=== PATIENT | female | born 1930 | race Caucasian/White ===

== ENCOUNTER 2017-11-25 04:13 | Emergency (ER) | payer OTHER ==
--- NOTE | 2017-11-25 04:37 | ED MVC/FALL/TRAUMA COMPLAINT ---
History of Present Illness General Chief Complaint: Fall Stated Complaint: "FALL" Source: patient, family Exam Limitations: patient's age, clinical condition Vital Signs & Intake/Output Vital Signs & Intake/Output Vital Signs Date Time Temp Pulse Resp B/P B/P Pulse O2 O2 Flow FiO2 Mean Ox Delivery Rate 11/25 0536 172/100 11/25 0459 Room Air 11/25 0426 97.4 108 18 163/113 99 Room Air Allergies Coded Allergies: adhesive tape (UNKNOWN 07/17/15) Triage Note: PT TO TRIAGE FROM HOME S/P TRIP AND FALL WHEN GETTING UP TO BATHROOM THIS MORNING. +HEADSTRIKE, BRUISING AND EDEMA NOTED TO EYELIDS, NOSE, NOSE BLEEDING. PT ON WARFARIN. A/O. EVAL'D UPON ARRIVAL TO ROOM BY MD EDDY. Triage Nurses Notes Reviewed? yes Onset: Gradual Duration: minute(s): Timing: recent history Severity: moderate Injuries/Fall Location: head Method of Injury: fall Loss of Consciousness: no loss of consciousness Modifying Factors: Improves With: rest. Associated Symptoms: facial swelling and ecchymosis HPI: 87 yo woman on coumadin presents after a fall. Her daughter notes that she walks with a walker, arose to go to the bathroom and tripped. She landed directly on her face, did not lose consciousness. She notes her face is very swollen with an abrasion on the bridge of her nose. She notes no other injury. Past History Travel History Traveled to [place] past 21 day No Medical History Any Pertinent Medical History? see below for history Neurological: NONE EENT: NONE Cardiovascular: hypertension, "IRREGULAR HEART BEAT" Respiratory: NONE Gastrointestinal: NONE Hepatic: NONE Renal: NONE Musculoskeletal: NONE Psychiatric: NONE Endocrine: diabetes Blood Disorders: NONE Cancer(s): NONE FILER FINISH/Reproductive: NONE Surgical History Surgical History: none Psychosocial History Services at Home None What is your primary language Sammarinese Tobacco Use: Never used Family History Hx Contributory? No Review of Systems Review of Systems Constitutional: Reports: no symptoms. Eyes: Reports: no symptoms. Ears, Nose, Throat, Mouth: Reports: no symptoms. Respiratory: Reports: no symptoms. Cardiovascular: Reports: no symptoms. Gastrointestinal/Abdominal: Reports: no symptoms. Genitourinary: Reports: no symptoms. Musculoskeletal: Reports: no symptoms. Skin: Reports: no symptoms. Neurological/Psychological: Reports: no symptoms. All Other Systems: Reviewed and Negative Physical Exam Physical Exam General Appearance: well developed/nourished, moderate distress Head: raccoon eyes bilaterally Eyes: Bilateral: other (raccoon eyes B,eyes swollen). Ears, Nose, Throat, Mouth: 1x2cm abrasion on bridge of nose with tiny arterial bleeding. Neck: normal inspection, supple, full range of motion, normal alignment Respiratory: normal breath sounds, chest non-tender, no respiratory distress, quiet respiration, lungs clear Cardiovascular: irregularly irregular Gastrointestinal: normal bowel sounds, soft, non-tender, no organomegaly Back: normal inspection, normal range of motion Extremities: normal range of motion Neurologic/Psych: no motor/sensory deficits, awake, alert Skin: intact, normal color Core Measures ACS in differential dx? No CVA/TIA Diagnosis No Sepsis Present: No Sepsis Focused Exam Completed? No Progress Differential Diagnosis: skull fx, maxillo-facial fx, ICH, vs other trauma Plan of Care: Orders Procedure Date/time Status BLOOD PRODUCT PICKUP 11/25 0555 Active FRESH FROZEN PLASMA 11/25 0551 Active TYPE & SCREEN (NOT X-MATCH) 11/25 0544 Active Add-on Test (ER Only) 11/25 0530 Active Add-on Test (ER Only) 11/25 0501 Active PARTIAL THROMBOPLASTIN TIME 11/25 0444 Complete PROTHROMBIN TIME 11/25 0444 Complete DIGOXIN 11/25 0444 Complete TROPONIN LEVEL 11/25 0438 Complete LIPASE 11/25 0438 Complete HEPATIC FUNCTION PANEL 11/258 Complete CBC WITHOUT DIFFERENTIAL 11/25 437 Complete BASIC METABOLIC PANEL 11/258 Complete AMYLASE 11/25 0438 Complete EKG 11/25 437 Active Laboratory Tests 11/25/17 0444: Anion Gap 13, Estimated GFR 39 L, BUN/Creatinine Ratio 26.2 H, Glucose 350 H, Calcium 9.7, Total Bilirubin 0.8, Direct Bilirubin 0.2, AST 23, ALT 24, Alkaline Phosphatase 58, Troponin I 0.23 *H, Total Protein 6.8, Albumin 3.8, Amylase 57, Lipase 70, PT 30.1 H, INR 2.73 H, APTT 39 H, CBC w Diff NO MAN DIFF REQ, RBC 4.24, MCV 94.6, MCH 31.7 H, MCHC 33.5, RDW 14.0, MPV 10.1, Gran % 85.6 H, Lymphocytes % 11.2 L, Monocytes % 2.3, Eosinophils % 0.8, Basophils % 0.1, Absolute Granulocytes 11.4 H, Absolute Lymphocytes 1.5, Absolute Monocytes 0.3, Absolute Eosinophils 0.1, Absolute Basophils 0, Digoxin 0.9 Diagnostic Imaging: Viewed by Me: CT Scan. Discussed w/RAD: CT Scan. Radiology Impression: PATIENT: ROCK CARLTON PRESENT AGE: 87 PATIENT ACCOUNT NO: [id number] : [birth year] LOCATION: [facility] ORDERING PHYSICIAN: Eddie Eddy MD SERVICE DATE: 11/25/17 EXAM TYPE: CAT - CT CERV SPINE WO IV CONTRAST; CT HEAD WO IV CONTRAST; CT MAXILLOFACIAL W/O CON EXAMINATIONS: CT HEAD WITHOUT CONTRAST AND CT CERVICAL SPINE WITHOUT CONTRAST AND CT FACIAL BONES WITHOUT CONTRAST CLINICAL INFORMATION : Head injury. Trauma. COMPARISON: None. TECHNIQUE: Contiguous helical images of the brain were obtained without IV contrast. Contiguous helical images of the facial bones were obtained without IV contrast. Contiguous helical images of the cervical spine were obtained without IV contrast. Multiplanar reconstructions were performed. FINDINGS: There is a left tentorial acute subdural hemorrhage, measuring approximately 10 mm in thickness. There is also a small amount of acute subdural blood within the posterior falx. The lateral, third, fourth ventricles are prominent, though age-appropriate and concordant with the appearance of the sulci. There is no evidence for acute intraparenchymal hemorrhage or infarct. There is neither mass nor mass effect. There is no shift of midline structures. There is patchy ethmoid sinus opacification. There are small bilateral maxillary sinus air-fluid levels. The mastoid air cells are clear. There are no osseous lesions. There are bilateral nasal bone fractures. The ostiomeatal units are patent. There is a soft tissue hematoma anterior to the midline lower frontal bones. The cervical vertebra are in normal alignment. Disc heights and vertebral heights are well-preserved. There is mild anterior osteophyte formation within the mid to lower cervical spine. There are no fractures. There is no prevertebral soft tissue swelling. There is no cervical lymphadenopathy. The visualized lung apices are clear. IMPRESSION: Acute left tentorial subdural hemorrhage measuring 10 mm in greatest thickness without shift of midline structures. Bilateral nasal bone fractures. Soft tissue hematoma anterior to the lower frontal bones. No evidence for acute injury to the cervical spine. The aforementioned was communicated to Dr. Eddy at 0514 hours. DICTATED BY: Claus Wood MD DATE/TIME DICTATED:11/25/17532 OBSTETRICAL NURSE:MARKY DATE/TIME TRANSCRIBED:11/25/17532 CONFIDENTIAL, DO NOT COPY WITHOUT APPROPRIATE AUTHORIZATION. <Electronically signed in Other Vendor System> SIGNED BY: Claus Wood MD 11/25/1742, PATIENT: ROCK CARLTON PRESENT AGE: 87 PATIENT ACCOUNT NO: [id number] : [birth year] LOCATION: [facility] ORDERING PHYSICIAN: Eddie Eddy MD SERVICE DATE: 11/25/17 EXAM TYPE: CAT - CT ABD & PELVIS W/O IV CONTRAS; CT CHEST WO IV CONTRAST EXAMINATION: CT CHEST, ABDOMEN AND PELVIS WITHOUT CONTRAST CLINICAL INFORMATION: Pain following trauma. COMPARISON: None. TECHNIQUE: Contiguous axial thin section helical images of the chest, abdomen and pelvis were performed without oral or IV contrast. The data set was reformatted in the coronal and sagittal planes and reviewed on an independent workstation. DLP: 651 mGy-cm. FINDINGS: The heart is of normal size. There is no pericardial effusion. There is neither mediastinal, hilar nor axillary lymphadenopathy. There are no chest wall masses. Review of lung windows demonstrates that there are neither pleural effusions nor pneumothoraces. There are no consolidations. There are no pulmonary parenchymal nodules. The liver is of normal size and attenuation without focal lesions nor intrahepatic biliary ductal dilation. A normal gallbladder is identified. There is no wall thickening or discernible pericholecystic fluid. The spleen, pancreas, adrenal glands are unremarkable. Both kidneys are of normal size and attenuation without hydronephrosis or nephrolithiasis. There is no abdominal free fluid. There is neither mesenteric nor retroperitoneal lymphadenopathy. There is sigmoid diverticulosis without evidence of diverticulitis; otherwise, unremarkable unopacified loops of small and large bowel are identified. There is no pelvic free fluid. The urinary bladder is unremarkable. There is neither pelvic nor inguinal lymphadenopathy. Bone windows: Neither sclerotic nor lytic bone lesions are identified. There is multilevel disc height loss within the lumbar spine. There is anterior osteophyte formation throughout the thoracic and lumbar spine. No acute fractures are identified. IMPRESSION: No evidence for acute traumatic injury to the thorax, abdomen nor pelvis. No demonstrable fractures. Sigmoid diverticulosis without evidence of diverticulitis. DICTATED BY: Claus Wood MD DATE/TIME DICTATED:11/25/17538 OBSTETRICAL NURSE:MARKY DATE/TIME TRANSCRIBED:11/25/17538 CONFIDENTIAL, DO NOT COPY WITHOUT APPROPRIATE AUTHORIZATION. <Electronically signed in Other Vendor System> SIGNED BY: Claus Wood MD 11/25/17 0546 Initial ED EKG: AFIB, tachycardic. no acute changes. Departure Departure Disposition: STILL A PATIENT Condition: Stable Clinical Impression Primary Impression: Fall Secondary Impressions: Elevated troponin I level, Head injury, Intracranial hemorrhage, Nasal bone fractures, Traumatic ecchymosis of face Referrals: Linda DUARTE,David Jiménez (PCP/Family) Departure Forms: Customer Survey General Discharge Information Comments 11/25/17, 5:30am... discussed with [facility] ... pt with acute subdural in left tentorium, bilateral nasal bone fractures... called for transfer to [facility]. Vitamin K ordered 11/25/17, 5:34am... received call from lab... pt with troponin 0.23.... aspirin not given due to intracranial hemorrhage. ... type and screen ordered for [facility] 11/25/17... 5:38am... discussed with dr. neal ([facility]) who accepts transfer. discussed at length with daughter and patient. Critical Care Note Critical Care Note Critical Care Time: 30-74 min
[2017-11-25 04:53] LABS: ABSOLUTE BASOPHIL COUNT 0 /CUMM (0.0-0.2); ABSOLUTE EOSINOPHIL COUNT 0.1 /CUMM (0.0-0.7); ABSOLUTE GRANULOCYTE CT 11.4 /CUMM (1.4-6.5); ABSOLUTE LYMPH COUNT 1.5 /CUMM (1.2-3.4); ABSOLUTE MONOCYTE COUNT 0.3 /CUMM (0.10-0.60); BASOPHIL % 0.1 % (0.0-2.0); EOSINOPHIL % 0.8 % (0-5); HEMATOCRIT 40.1 % (37-47); MEAN CORPUSCULAR HGB 31.7 PG (27.0-31.0); MEAN CORPUSCULAR HGB CONC 33.5 G/DL (33.0-37.0); MEAN CORPUSCULAR VOLUME 94.6 FL (81.0-99.0); MEAN PLATELET VOLUME 10.1 FL (7.4-10.4); RED BLOOD CELL CT 4.24 /CUMM (4.20-5.40); WHITE BLOOD CELL COUNT 13.4 /CUMM (4.8-10.8)
[2017-11-25 05:23] LABS: PT 30.1 SEC (9.4-12.5); PTT 39 SEC (25-37)
[2017-11-25 05:24] LABS: GRANULOCYTE % 85.6 % (42.2-75.2); PLATELET COUNT 118 /CUMM (130-400)
[2017-11-25 05:36] VITALS: BP 172/100
--- NOTE | 2017-11-25 05:42 | CT SCAN REPORT ---
EXAMINATIONS: CT HEAD WITHOUT CONTRAST AND CT CERVICAL SPINE WITHOUT CONTRAST AND CT FACIAL BONES WITHOUT CONTRAST CLINICAL INFORMATION: Head injury. Trauma. COMPARISON: None. TECHNIQUE: Contiguous helical images of the brain were obtained without IV contrast. Contiguous helical images of the facial bones were obtained without IV contrast. Contiguous helical images of the cervical spine were obtained without IV contrast. Multiplanar reconstructions were performed. FINDINGS: There is a left tentorial acute subdural hemorrhage, measuring approximately 10 mm in thickness. There is also a small amount of acute subdural blood within the posterior falx. The lateral, third, fourth ventricles are prominent, though age-appropriate and concordant with the appearance of the sulci. There is no evidence for acute intraparenchymal hemorrhage or infarct. There is neither mass nor mass effect. There is no shift of midline structures. There is patchy ethmoid sinus opacification. There are small bilateral maxillary sinus air-fluid levels. The mastoid air cells are clear. There are no osseous lesions. There are bilateral nasal bone fractures. The ostiomeatal units are patent. There is a soft tissue hematoma anterior to the midline lower frontal bones. The cervical vertebra are in normal alignment. Disc heights and vertebral heights are well-preserved. There is mild anterior osteophyte formation within the mid to lower cervical spine. There are no fractures. There is no prevertebral soft tissue swelling. There is no cervical lymphadenopathy. The visualized lung apices are clear. IMPRESSION: Acute left tentorial subdural hemorrhage measuring 10 mm in greatest thickness without shift of midline structures. Bilateral nasal bone fractures. Soft tissue hematoma anterior to the lower frontal bones. No evidence for acute injury to the cervical spine. The aforementioned was communicated to Dr. Eddy at 0514 hours.
--- NOTE | 2017-11-25 05:46 | CT SCAN REPORT ---
EXAMINATION: CT CHEST, ABDOMEN AND PELVIS WITHOUT CONTRAST CLINICAL INFORMATION: Pain following trauma. COMPARISON: None. TECHNIQUE: Contiguous axial thin section helical images of the chest, abdomen and pelvis were performed without oral or IV contrast. The data set was reformatted in the coronal and sagittal planes and reviewed on an independent workstation. DLP: 651 mGy-cm. FINDINGS: The heart is of normal size. There is no pericardial effusion. There is neither mediastinal, hilar nor axillary lymphadenopathy. There are no chest wall masses. Review of lung windows demonstrates that there are neither pleural effusions nor pneumothoraces. There are no consolidations. There are no pulmonary parenchymal nodules. The liver is of normal size and attenuation without focal lesions nor intrahepatic biliary ductal dilation. A normal gallbladder is identified. There is no wall thickening or discernible pericholecystic fluid. The spleen, pancreas, adrenal glands are unremarkable. Both kidneys are of normal size and attenuation without hydronephrosis or nephrolithiasis. There is no abdominal free fluid. There is neither mesenteric nor retroperitoneal lymphadenopathy. There is sigmoid diverticulosis without evidence of diverticulitis; otherwise, unremarkable unopacified loops of small and large bowel are identified. There is no pelvic free fluid. The urinary bladder is unremarkable. There is neither pelvic nor inguinal lymphadenopathy. Bone windows: Neither sclerotic nor lytic bone lesions are identified. There is multilevel disc height loss within the lumbar spine. There is anterior osteophyte formation throughout the thoracic and lumbar spine. No acute fractures are identified. IMPRESSION: No evidence for acute traumatic injury to the thorax, abdomen nor pelvis. No demonstrable fractures. Sigmoid diverticulosis without evidence of diverticulitis.
== END 2017-11-25 06:28 | disposition short-term general hospital (02) ==
LOC: ERH 04:13
PROVIDERS: Pediatrics
DX: S06.9X0A Unspecified intracranial injury without loss of consciousness, initial encounter (principal); S02.2XXA Fracture of nasal bones, initial encounter for closed fracture; S00.83XA Contusion of other part of head, initial encounter; R77.8 Other specified abnormalities of plasma proteins; S09.90XA Unspecified injury of head, initial encounter; W01.0XXA Fall on same level from slipping, tripping and stumbling without subsequent striking against object, initial encounter; Y93.01 Activity, walking, marching and hiking
CPT/HCPCS: 74176; 93005; 93010; 96372; 96374; 99291; J0131